=== PATIENT | female | born 1965 | race Caucasian/White ===

== ENCOUNTER 2018-07-21 15:52 | Emergency (ER) | payer BC, OTHER ==
[2018-07-21] MEDS ORDERED: IBUPROFEN 600 MG TAB PO ONE (16:05)
--- NOTE | 2018-07-21 16:05 | EDPHY ---
H & P Time Seen by Provider: 07/21/18 16:02 HPI/ROS: CHIEF COMPLAINT: Right wrist injury HISTORY OF PRESENT ILLNESS: 53-year-old left hand dominant female arrives via private vehicle complaining of acute right wrist pain after she sustained a mechanical fall onto her right wrist. No proximal pain or injury. Isolated pain to the right wrist. No paresthesia. No head injury. PHYSICAL EXAM (Prior to examination, patient consented to physical exam, hands were washed and my usual and customary physical exam procedures followed) 1) GENERAL: Well-developed, well-nourished, alert and oriented. Appears to be in no acute distress. 2) HEAD: Normocephalic 3) HEENT: Pupils equal, round, reactive to light bilaterally. 4) LUNGS: Breathing comfortably. 5) MUSCULOSKELETAL: Tender to palpation with noted dorsal deformity to the right wrist. Soft compartments. Normal coloration. 6) SKIN: Intact. No puncture wound. 7) VASCULAR: pulses and cap refill present are brisk 8) NEUROLOGIC: Radial, ulnar, median nerve function intact with no deficits appreciated on exam DIFFERENTIAL DIAGNOSIS: in no particular order including but not limited to fracture, sprain, compartment syndrome Smoking Status: Never smoked Constitutional: Initial Vital Signs Temperature (C) 36.5 C 07/21/18 15:57 Heart Rate 73 07/21/18 15:57 Respiratory Rate 22 H 07/21/18 15:57 Blood Pressure 134/81 H 07/21/18 15:57 O2 Sat (%) 100 07/21/18 15:57 O2 Delivery Mode Room Air Allergies/Adverse Reactions: No Known Allergies Allergy (Unverified 07/21/18 15:56) Home Medications: Medication Instructions Recorded Ondansetron Odt [Zofran Odt] 4 mg PO Q4PRN PRN #10 tab 07/21/18 oxyCODONE/APAP 5/325 [Percocet 1 tab PO Q6 #10 tab 07/21/18 5/325] MDM/Departure - MDM Imaging Results: Imaging Impressions Wrist X-Ray 07/21/18 16:01 Impression: 1. Complex dorsally displaced angulated distal right radial metaphyseal fracture and fracture of the ulnar styloid Wrist X-Ray 07/21/18 17:11 Impression: Improved alignment of a comminuted fracture of the distal radius. Distal fracture fragments remain dorsally displaced. Images reviewed myself Procedures: Procedure: Fracture reduction Indication: Fracture of the right distal radius Indications, risks and benefits discussed with patient and consent obtained. A hematoma block of 0.5% bupivicaine placed by myself. Traction and countertraction applied achieving a visible and palpable reduction. The area was splinted with sugar-tong Orthoglass splint. After application of the splint I returned and re-examined the patient. The splint was adequately immobilizing the joint and distal to the splint the patient's circulation and sensation were intact. Patient shows no signs of compartment syndrome. Was given orthopedic precautions. Medications Given: Discontinued Medications Ibuprofen (Motrin) 600 mg PO EDNOW ONE Stop: 07/21/18 16:06 Last Admin: 07/21/18 16:07 Dose: 600 mg Oxycodone/Acetaminophen (Percocet 5/325mg Prepack#4) 1 btl TAKEHOME EDNOW ONE Stop: 07/21/18 17:31 Last Admin: 07/21/18 17:40 Dose: 1 btl ED Course/Re-evaluation: Re-evaluation with serial exams. Neurovascular intact no evidence of median nerve damage. - Depart Disposition: Home, Routine, Self-Care Clinical Impression: Wrist fracture, right Qualifiers: Encounter type: initial encounter Fracture type: closed Qualified Code(s): S62.101A - Fracture of unspecified carpal bone, right wrist, initial encounter for closed fracture Condition: Fair Instructions: Oxycodone/Acetaminophen (By mouth), Wrist Fracture in Adults (ED) Additional Instructions: Return to the ER immediately if you experience discoloration, have worsening pain, numbness, tingling, or any other symptoms that concern you. If you received x-rays in the emergency department today, be advised, that ligamentous , tendon, muscular, and other non-bony injury cannot be fully ruled out. Try to keep your affected extremity elevated above the level of your chest, and keep cold packs on the affected area, for the next 48 hours. Prescriptions: Ondansetron Odt [Zofran Odt] 4 mg PO Q4PRN PRN #10 tab PRN Reason: Nausea oxyCODONE/APAP 5/325 [Percocet ] 1 tab PO Q6 #10 tab Referrals: Avery Arroyo MD [Medical Doctor] - 1-2 days without fail (You may follow up with Dr. Avery Arroyo or his partner Dr. Mckeon. Tell them it is an ER follow -up visit for a comminuted, closed, distal radius fracture)
[2018-07-21] MEDS ORDERED: OXYCODONE/APAP 5/325MG PREPACK#4 BTL TAKEHOME ONE (17:30)
[2018-07-21] MEDS ORDERED: ONDANSETRON 4MG PREPACK#2 BTL TAKEHOME ONE (17:40)
[2018-07-21 17:55] VITALS: BP 129/77
== END 2018-07-21 17:54 | disposition home or self-care (01) ==
PROC: 2W3CX1Z Immobilization of Right Lower Arm using Splint (ICD-10-PCS; principal; 2018-07-21)
DX: S52.511A Displaced fracture of right radial styloid process, initial encounter for closed fracture (principal); W19.XXXA Unspecified fall, initial encounter; Y92.9 Unspecified place or not applicable; Y93.9 Activity, unspecified; Y99.9 Unspecified external cause status